=== PATIENT | female | born 1960 | race Caucasian/White ===

== ENCOUNTER 2017-11-11 15:45 | Outpatient (RCR) | payer BC, SELFPAY ==
--- NOTE | 2017-11-05 12:30 | IE_ITS ---
Date: November 05, 2017 Referring: Ari Wade MD M.D. Diagnosis: Cervical radiculopathy P.T. Diagnosis: Cervical radiculopathy SUBJECTIVE: History of Present Illness: Patient is a 57 year old female who sustained an injury in early July. She was working at a function for work at the [employer] She lifted a keg of beer and felt an immediate strain to her right sided neck and shoulder. She reports that she awoken the next morning with increased irritation however have pulled muscles before and thought it would go away therefore did not report it. Symptoms since then have continued to get worse. She reports that she has extreme pain and tingling into the side of her face especially by the end of the day. She is having trouble finding a comfortable position to sleep in at this time. She reports difficulty turning her head and notes throughout the day she finds herself holding her head up with her hands to help reduce the irritation. She is utilizing 800 mg of Ibp for pain for her sciatica. She has been utilizing [place] balm and icy hot patches along with cryotherapy with some relief. She notes of daily BILLY's. Pain Ratin/10 Pain Location: right sided scapular musculature to the base of the skull into the lateral neck Prior Level of Function: Independent Current Level of Function: Poor sleeping tolerance, lifting tolerance, difficulty with fucntional ADL's. 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 Previous Treatment: She reports that she was referred for an xray however is unable to afford at this time. She has a high deductible. Social: She lives with her . 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 Comorbidities: Hypertension, Arthritis, Occasional vertigo Falls in the last year: No Reported hospitalizations in the last year - No Medications: Ibuprofen, Hydrochlorothiazide, Atorvastatin, Potassium, Vitamin C Quality of Life: Poor Standardized Measures: NDI score: 68% perceived disability rating OBJECTIVE: Posture: Mild forward head rounded shoulder posture. Observation: Patient is very guarded with her cervical movements. Utilizing her whole body to turn verses cervical rotation. Palpation: Tenderness to palpation to the right upper trap, lev scap, cervical and thoracic paraspinals, SCM and scalenes. Positive PA mobilization C3-C5 ROM: Active cervical ROM flexion 30 degrees, extension 5 degrees with increased pain, Sidebending right 10 degrees, left 15 degrees. Demonstrates full active UE ROM bilaterally. Strength: Demonstrates grossly 5/5 UE strength throughout. Increased pain with resisted GH flexion, abduction. Neuro: Intact to light touch. Special Tests: Cervical distraction provides significant relief of symptom level. (+) Foraminal compression Treatment: IE: [id number] Patient Education: in HEP promoting posture and body mechanics. Incorporated self TPR and self massage techniques for reduced tone. Recommended continues use of cryotherapy. Issued Treat Your Own Neck by Phillip Campos for Beth principles for reduced cervical radiculopathy. Provided manual cervical distractions followed by STM throughout the entire upper back and neck in supine and prone with use of face cradle for comfort. TPR also provided to the upper trap and lev scap. Ended with use of unattended estim along with cryotherapy to the upper neck. Patient did note moderate relief post session. Direct treatment time: 60 minutes Total treatment time: 75 minutes ASSESSMENT: Patient is a 57-year-old female, referred for PT services with the diagnosis of cervical radiculopathy. Patient presents with clinical signs and symptoms consistent with diagnosis, as demonstrated by the following impairment level findings: impaired joint mobility, muscle performance, soft tissue dysfunction. Impairments are contributing to the following functional limitations:ADL's, lifting tolerance, sleeping tolerance, daily BILLY's, Neck Disability Index 68% perceived disability rating Patient is assessed as: Low 18813 complexity, based on the following: History: See comorbidities and social history. Examination: See above for functional limitations and impairments. Presentation: Stable . Decision-Making: Low complexity 68 % Disability based on NDI Patient requires skilled PT intervention to remediate the above functional limitations to return to: __X__ Premorbid level of function __X__ Return to full functional mobility __X__ Return to work demands __X__ Improve QOL Prognosis: Good STG: __4__ weeks. 1. Decreased pain by 50% or greater via VAS or greater 2. Improved sleeping tolerance with more manageable symptoms of the cervical spine 3. Improved cervical ROM to WFL's with reduced compensatory movement patterns 4. Reduced PDR by 25% or greater. LTG: __10__ weeks. 1. Return to premorbid level of function with manageable symptoms. 2. Return to full functional mobility with manageable symptoms. 3. Independent with self-maintenance program. PLAN: Patient to be seen 2 x per week, for 10 weeks, adjusting frequency of visits per patient symptoms and response to treatment. Treatment to include: Manual therapy - 75490 Cervical decompression via manual distraction, STM , cervical and thoracic mobilizations, OA release Therapeutic exercise - 69063. Cervical and scapular stabilization, postural and body mechanics Modalities such as ultrasound and estim will be utilized as needed for pain reduction. Progress to strong independent self management program once above goals have been met. If no level of improvement is seen in 4-6 weeks would recommend further intervention. Will discharge when above goals have been met. Thank you for this referral. Please do not hesitate to contact me with any questions or concerns regarding this patient's plan of care.
--- NOTE | 2017-11-11 15:45 | PTTR_ITS ---
DATE: November 11, 2017 SUBJECTIVE: Valentina notes that she obtained restrictions via her PCP for work. She reports that she was sore post her IE however did feel that it helped with her mobility for a period of time. She just got out of work prior to todays appt , this is when she feels at her worst. OBJECTIVE: Manual therapy: ([id number]).Manual cervical distractions. Followed by PA mobilization C3-T2. Side bending and rotation stretching. STM throughout the upper back and neck. OA release. CFM to the paraspinals. TPR to the upper trap, lev scap, and SCM. Reviewed HEP and continued to promote postural and body mechanics. Electrical Stim Unattended : Provided along with MHP in prone with use of face cradle for comfort. This was applied for 15 minutes post mobilization. Will continue to focus manual mobilization in promotion of centralization of symptoms with reduced numbness and tingling. Direct treatment time: 30 minutes Total treatment time: 45 minutes
== END 2017-11-12 23:59 | disposition home or self-care (01) ==
LOC: PT 15:45
PROVIDERS: PCP Nurse Practitioner Gerontology; Referring Provider Family Medicine; Visit Provider Family Medicine
DX: M54.12 Radiculopathy, cervical region (principal)
CPT/HCPCS: 97140; 97161

== ENCOUNTER 2017-11-26 01:43 | Outpatient (CLI) | payer BC, SELFPAY ==
[2017-11-26 13:24] LABS: ALT 18 U/L (12-78); AST 8 U/L (15-37); Albumin 3.8 g/dL (3.4-5.0); Alkaline Phosphatase 78 U/L (46-116); Anion Gap 7.6 mmol/L (3-11); BUN 25 mg/dL (7-18); Bilirubin, Total 0.4 mg/dL (0.2-1.0); CO2 29.4 mmol/L (21.0-32.0); CREATININE 1.14 mg/dL (0.55-1.02); Chloride 105 mmol/L (98-107); Cholesterol 200 mg/dL (50-200); Estimated GFR 49.31 (mL/min/1.73m2); Glucose 125 mg/dL (70-100); HDL Cholesterol 49 mg/dL (40-60); LDL CHOLESTEROL 131 mg/dL (<100); Potassium 4.4 mmol/L (3.5-5.1); Sodium 142 mmol/L (136-145); Triglyceride 225 mg/dL (30-150)
== END 2017-11-26 02:03 ==
PROVIDERS: PCP Family Medicine; Visit Provider Family Medicine
DX: E78.5 Hyperlipidemia, unspecified (principal)
CPT/HCPCS: 36415; 80053; 80061; 83721

== ENCOUNTER 2017-12-14 12:22 | Emergency (ER) | payer BC, SELFPAY ==
[2017-12-14 12:26] VITALS: BP 149/89; PULSE 77; RESP 16; TEMP 36.8; O2SAT 99
--- NOTE | 2017-12-14 12:43 | ED.GENADUL_ITS ---
Discharge Plan Disposition Patient Disposition: HOME Condition: Good Discharge Details Chief Complaint: RespSymp Clinical Impression: Acute bronchitis Primary Care Provider: Alexandrea Reyna ED Provider: Norman Gamboa Home Meds and New Rx's Prescriptions: New azithromycin [Zithromax Z-Jacobo] 250 mg tablet See Label Instructions .ROUTE .COMPLEX Qty: 6 RF: 0 Continue nicotine [Nicoderm CQ] 21 mg/24 hr patch 24 hour 1 patch TD DAILY RF: 0 atorvastatin [Lipitor] 20 mg tablet 20 mg PO DAILY Qty: 90 RF: 3 epinephrine 0.3 mg/0.3 mL auto-injector 0.3 mg IM ONCE Qty: 2 RF: 6 hydrochlorothiazide 50 mg tablet 50 mg PO DAILY Qty: 90 RF: 3 ibuprofen 800 mg tablet 800 mg PO TID PRN (Reason: pain) Qty: 90 RF: 3 potassium chloride 10 mEq tablet extended release 10 meq PO DAILY Qty: 90 RF: 3 meclizine 12.5 mg Tablet 1 tab PO PRN PRNRF: 0 Discharge Instructions Instructions: Acute Bronchitis (ED) Additional Instructions: Home to rest today. Small, frequent sips of fluids to maintain hydration. Continue ibuprofen as needed for discomfort. May continue ice and heat therapy as well. Follow-up with regular doctor if not improving in 5 days time Continue regular medications. Take antibiotics as prescribed. Continue your efforts to decrease tobacco use Medical Decision Making 57-year-old female smoker with days of worsening cough, congestion, production of sputum. She is of questionable exposure to streptococcal pharyngitis and the rapid strep test was obtained and negative. Nonetheless, I do feel that she is at risk for progressive acute bronchitis/sinusitis and will treat with a course of antibiotics. Discussed with her home management, the need for smoking cessation, as well as return precautions to the ER. HPI General Mode of arrival: ambulatory . Date/Time Provider Initiated Documentation: 12/14/17 12:29 . Limitations to Documentation: no limitations . Information obtained by: patient . History of Present Illness 57 year old F presents to the emergency department with the chief complaint of Cough and congestion, described as moderate, Quality is described as aching , and is localized to the chest. Patient reports no radiation. Patient started experiencing this day(s) and it has been constant. No relieving factors improve symptom(s), No exacerbating factors reported . Patient notes cough; denies chest pain and shortness of breath. HPI Narrative: 57-year-old female smoker presents with days of cough, congestion , increasing production of green sputum with associated sinus pain and pressure. She did not tolerate liquids and solids by mouth. She has ongoing right-sided neck pain for which she is seeing physical therapy. She has no new motor weakness or numbness Related Data Home Medications Medication Instructions Recorded Confirmed nicotine 21 mg/24 hr daily 1 patch TD DAILY 11/24/17 12/14/17 transdermal patch atorvastatin 20 mg tablet 20 mg PO DAILY #90 tab 11/30/17 12/14/17 epinephrine 0.3 mg/0.3 mL 0.3 mg IM ONCE #2 each 11/30/17 12/14/17 injection, auto-injector hydrochlorothiazide 50 mg tablet 50 mg PO DAILY #90 tab 11/30/17 12/14/17 ibuprofen 800 mg tablet 800 mg PO TID PRN #90 tab 11/30/17 12/14/17 potassium chloride ER 10 mEq 10 meq PO DAILY #90 tab 11/30/17 12/14/17 tablet,extended release azithromycin [Zithromax Z-Jacobo] See Label Instructions .ROUTE 12/14/17 .COMPLEX #6 tab meclizine 1 tab PO PRN PRN 12/14/17 12/14/17 Previous Rx's Medication Instructions Recorded atorvastatin 20 mg tablet 20 mg PO DAILY #90 tab 11/30/17 epinephrine 0.3 mg/0.3 mL 0.3 mg IM ONCE #2 each 11/30/17 injection, auto-injector hydrochlorothiazide 50 mg tablet 50 mg PO DAILY #90 tab 11/30/17 ibuprofen 800 mg tablet 800 mg PO TID PRN #90 tab 11/30/17 potassium chloride ER 10 mEq 10 meq PO DAILY #90 tab 11/30/17 tablet,extended release azithromycin [Zithromax Z-Jacobo] See Label Instructions .ROUTE 12/14/17 .COMPLEX #6 tab Allergies Allergy/AdvReac Type Severity Reaction Status Date / Time Penicillins Allergy Severe seizure Unverified 12/14/17 12:29 venom-honey bee Allergy Severe Anaphylaxsi Unverified 12/14/17 12:29 s General Stated Complaint: RespSymp PIPER: 4 Review of Systems Review of Systems 8 systems reviewed and otherwise - PFSH Family History Mother Essential hypertension Alzheimer disease Hyperlipidemia Father Essential hypertension Hyperlipidemia Brother No problems noted. Grandfather Heart disease Cerebrovascular accident Parkinson disease Grandmother Personal history of malignant neoplasm CD (Crohn's disease) Heart disease Hyperlipidemia Cerebrovascular accident Grandfather No problems noted. Grandmother Heart disease Son Substance abuse Depression Daughter No problems noted. Daughter No problems noted. Social History Smoking/Tobacco Use Status: Current every day Surgical History Ligation of fallopian tube Exam Narrative Exam Narrative: GEN: awake, alert, oriented 3. Pleasant, well groomed, interactive. HEAD: Normocephalic, atraumatic ENT: Mucous membranes moist, oropharynx erythematous without exudate or asymmetry. Min maxillary sinus tenderness to percussion, External ear exam unremarkable, patent membranes clear bilaterally EYES: PERRL, EOMI NECK: Full ROM, no LIZET, no menigismus CHEST/RESP: Nontender, clear to auscultation bilateral, no wheeze/rhonchi/rales CARDIOVASCULAR: RRR, no murmur, rub narayan. 2+ Rad pulse bilateral ABDOMEN: Soft, nontender, no mass. +Bowel sounds EXT: Full ROM, no edema, no rash Neuro: Grossly normal neurologic exam, conversant, interactive. Psych: Speech fluent, thoughts congruent, affect normal Course Vital Signs Temperature 36.8 C 12/14/17 12:26 Pulse 77 12/14/17 12:26 Respiratory Rate 16 12/14/17 12:26 Blood Pressure 149/89 H 12/14/17 12:26 Pulse Oximetry 99 12/14/17 12:26 Temperature 36.8 C 12/14/17 12:26 Temperature Source Temporal Artery Scan 12/14/17 12:26 Pulse 77 12/14/17 12:26 Respiratory Rate 16 12/14/17 12:26 Blood Pressure 149/89 H 12/14/17 12:26 Pulse Oximetry 99 12/14/17 12:26 Oxygen Delivery Method Room Air 12/14/17 12:26 Oxygen Flow Rate 0 12/14/17 12:26 Pain Level 8 12/14/17 12:26 Lab/Test Results Lab/Test Results: POC Strep Test-TEN(Rapid) Start: 12/14/17 12: 34 Freq: .Rapid Strep Test Status: Active Protocol: Document 12/14/17 12:40 FLORENTIN (Rec: 12/14/17 12:40 [id number]) Strep test-TEN(Rapid)-POC POC-Strep test-TEN (Rapid) Negative POC-Strep test-TEN (Rapid) Negative
[2017-12-14 12:58] VITALS: BP 149/89; PULSE 77; RESP 16; TEMP 36.8; O2SAT 99
== END 2017-12-14 13:00 | disposition home or self-care (01) ==
LOC: ER 13:09
PROVIDERS: Emergency Provider Emergency Medicine; PCP Nurse Practitioner Gerontology
DX: J20.9 Acute bronchitis, unspecified (principal); R50.9 Fever, unspecified; J02.9 Acute pharyngitis, unspecified; F17.210 Nicotine dependence, cigarettes, uncomplicated
CPT/HCPCS: 87880; 99283

== ENCOUNTER 2022-09-28 15:18 | Emergency (ER) | payer OTHER, SELFPAY ==
[2022-09-28] VITALS (41 sets, daily range): BP systolic 168–217; BP diastolic 71–98; PULSE 48–88; RESP 9–29; TEMP 37.2; O2SAT 94–100
--- NOTE | 2022-09-28 15:15 | RT.EKG_ITS ---
APPROVED REPORT Exam: Resting ECG Reason for Exam: syncopal episode Patient Location: E HR:90 bpm ECG Measurements Heart Rate 90 AXIS OR 170 P 74 QRSd 101 QRS 59 QT 391 T 42 QTc 480 Conclusion Sinus rhythm...normal P axis, V-rate 60- 99 Physician: no stemi
--- NOTE | 2022-09-28 15:30 | DI.RAD_ITS ---
Exam(s) XR CHEST 2V PA LATERAL EXAM: XR CHEST 2V PA LATERAL CLINICAL HISTORY: recent pneumonia, persistent cough and malaise TECHNIQUE: 2D digital imaging was performed of the chest. Two images were obtained. PA and lateral views were obtained. COMPARISON: CR CHEST 2 VIEWS PA,LAT from 04/19/2017 FINDINGS: MEDIASTINUM: Normal. HEART: Normal. PULMONARY VASCULATURE: Normal. LUNGS: Clear. PLEURAL SPACE: No pleural effusion or pneumothorax. BONE:Within normal limits for the patient's age. OTHER FINDINGS:Normal. IMPRESSION: No acute pulmonary findings. DATA REPOSITORY: RADIATION DOSE DELIVERED:
--- NOTE | 2022-09-28 15:30 | DI.CT_ITS ---
Exam(s) CT HEAD WO EXAM: CT HEAD WO CLINICAL HISTORY: recurrent presyncope. TECHNIQUE: Imaging Protocol: Axial computed tomography images with coronal and sagittal reformatted images were created and reviewed COMPARISON: There are no priors for comparison. FINDINGS: Ventricles and Extra axial spaces: Normal in size and morphology for the patient's age. Hemorrhage: None. Cerebral parenchyma: Normal. Midline shift: None. Brainstem/Cerebellum: Normal. Calvarium: Normal. Visualized Paranasal sinuses/Mastoids: Clear. Soft Tissues: Unremarkable. IMPRESSION: 1. No acute intracranial process. 2. Findings were discussed with the emergency department at 5:55 p.m. on 09/28/2022. RADIATION DOSE DELIVERED: 853.43mGy.cm Total DLP DATA REPOSITORY: All CT scans at this facility are submitted to the National Radiology Data Registry (NRDR) Dose Index Registry (DIR) with the [employer] ([employer]). RADIATION OPTIMIZATION: All CT scans at this facility use at least one of these dose optimization te chniques: automated exposure control; mA and/or kV adjustment per patient size (includes targeted exa ms where dose is matched to clinical indication); or iterative reconstruction.
--- NOTE | 2022-09-28 15:36 | W.ED.GENAD ---
Discharge Plan Disposition Patient Disposition: Home Condition: Good Discharge Details Clinical Impression: Hypertension, Pre-syncope Primary Care Provider: None,None ED Provider: Isis Decker Home Meds and New Rx's Prescriptions: New hydrochlorothiazide 50 mg tablet 50 mg PO DAILY Qty: 14 0RF Continued atorvastatin [Lipitor] 20 mg tablet 20 mg PO DAILY Qty: 90 3RF hydrochlorothiazide 50 mg tablet 50 mg PO DAILY Qty: 90 3RF albuterol sulfate [Proventil HFA] 90 mcg/actuation HFA aerosol inhaler 2 puff inhalation Q6H PRN (Reason: shortness of breath or wheezing) Qty: 8.5 0RF benzonatate 100 mg capsule 100 mg PO TID PRN (Reason: cough) Qty: 14 0RF ibuprofen 800 mg tablet 800 mg PO TID PRN (Reason: pain) Qty: 90 3RF Discontinued potassium chloride 10 mEq tablet extended release 10 meq PO DAILY Qty: 90 3RF cefpodoxime 200 mg tablet 200 mg PO Q12H 7 Days Qty: 14 0RF Rx Instructions: must administer with a meal/food doxycycline hyclate 100 mg tablet 100 mg PO BID Qty: 14 0RF prednisone 20 mg tablet 40 mg PO DAILY 3 Days Qty: 6 0RF fluconazole [Diflucan] 150 mg tablet 150 mg PO ONCE Qty: 1 1RF Rx Instructions: as a single dose. Repeat in one week if needed Discharge Instructions Instructions: Hypertension (ED), Near Syncope (ED) Medical Decision Making 62yo F with hx HTN, COPD, no prior cardiac hx, presenting for multiple episodes of lightheadedness and whole-body tingling over the past week; symptoms occur with activity. No chest pain or shortness of breath, no LOC. Poorly controlled HTN; previously on 50mg HCTZ but not taking for several years, recently started on 25mg HCTZ from , working to establish PCP but does not have one yet. Did not take her 25mg of HCTZ over the weekend while she was camping. Hypertensive on arrival with SBP 190-200, vital signs and physical exam otherwise reassuring, normal neurological exam. Not concerned for CVA, low suspicion for acute cardiac pathology/NC/arrhythmia. Low EKG NSR, appropriate intervals, no concerning ST segment or T wave abnormalities to suggest occlusive NC. Recent pneumonia; CXR ordered and reviewed, no focal consolidation, agree with radiology read below. Head CT independently reviewed, no acute abnormalities no sequela of hypertensive encephalopathy, agree with radiology read below. Labs ordered and reviewed, CBC & CMP with no actionable abnormalities, TSH normal, troponin negative x 2. Given 50mg of HCTZ PO in the ED, on reassessment BP with SBP in 170-180 range. Patient reports feeling improved, has paperwork to establish PCP with [facility] which she plans to do tomorrow. Prescribed 50mg of hctz to cover for two weeks while she establishes primary care. Discharged home; discharge instructions including return precautions were reviewed with patient who verbalized understanding. All questions were answered and they are in full agreement with the plan. Imaging Data Radiologic Study: Imaging: X-Ray Radiologist's impression: IMPRESSION: No acute pulmonary findings. Radiologic Study #2: Imaging: CT Scan Radiologist's impression: IMPRESSION: 1. No acute intracranial process.? 2. Findings were discussed with the emergency department at 5:55 p.m. on 09/28/2022. Lab Data Lab results reviewed: Yes I reviewed the patient's lab results. Labs: Laboratory Tests Range/Units 09/28/22 09/28/22 09/28/22 15:42 15:42 18:39 WBC (4.4-10.8) 10^3/uL 8.19 RBC (3.93-5.22) 10^6/uL 4.66 Hgb (11.2-15.7) g/dL 13.8 Hct (36.0-46.0) % 40.6 MCV (80-95) fL 87 MCH (27.0-33.0) pg 29.6 MCHC (32.0-36.0) % 34.0 RDW (11.7-14.6) % 13.8 Plt Count (130-400) 10^3/uL 304 MPV (8.0-11.0) fL 9.9 Immature Gran % 0.1 Neutrophils % 43.9 Lymphocytes % 46.8 Monocytes % 8.4 Eosinophils % 0.6 Basophils % 0.2 Nucleated RBC % (0.0-0.3) % 0.0 Absolute Neutrophils (1.2-6.7) 10^3/uL 3.59 Absolute Lymphocytes (1.2-3.4) 10^3/uL 3.83 H Absolute Monocytes (0.1-0.8) 10^3/uL 0.69 Absolute Eosinophils (0.0-0.7) 10^3/uL 0.05 Absolute Basophils (0.0-0.2) 10^3/uL 0.02 Sodium (136-145) mmol/L 141 Potassium (3.5-5.1) mmol/L 3.5 Chloride (98-107) mmol/L 107 Carbon Dioxide (21.0-32.0) mmol/L 25.3 Anion Gap (3-11) mmol/L 8.7 BUN (7-18) mg/dL 11 Creatinine (0.55-1.02) mg/dL 0.6 Est GFR (CKD-EPI 2020) (mL/min/1.73m2) 102.06 Glucose (74-106) mg/dL 99 Calcium (8.5-10.1) mg/dL 8.8 Magnesium (1.8-2.4) mg/dL 2.1 Total Bilirubin (0.2-1.0) mg/dL 0.5 AST (15-37) U/L 16 ALT (14-59) U/L 26 Alkaline Phosphatase (46-116) U/L 80 Troponin I (<or=60) ng/L < 50 < 50 Total Protein (6.4-8.2) g/dL 7.2 Albumin (3.4-5.0) g/dL 4.0 TSH (0.36-3.74) uIU/mL 1.10 HPI General Date/Time Provider Initiated Documentation: 09/28/22 15:23. Limitations to Documentation: no limitations. Information obtained by: patient. HPI Narrative: 62yo F with hx HTN, COPD, presenting for multiple episodes of lightheadedness over the past week. Has been camping over the weekend and more physically active than usual. Symptoms occur with activity; feels like she is going to pass out and whole body feels tingly. Has not lost conciousness. No chest pain or shortness of breath during these episodes. Was previously on HCTZ 50mg, has not taken in several years. No PCP currently, was seen at and started on 25mg of HCTZ about a week ago. Recent treatment for pneumonia 4-5 weeks ago, multiple rounds of antibiotics. Has persistent cough and malaise over this time period; no fevers. She is otherwise in her usual state of health with no rash, nausea, vomiting, abdominal pain, back pain, numbness, tingling, weakness, palpitations, LE edema, or other concerns. No prior cardiac hx., Related Data Home Medications Medication Instructions Recorded Confirmed ibuprofen 800 mg tablet 800 mg PO TID PRN pain #90 tabs 11/30/17 08/31/22 atorvastatin 20 mg tablet (Lipitor) 20 mg PO DAILY #90 tabs 08/03/18 08/31/22 hydrochlorothiazide 50 mg tablet 50 mg PO DAILY #90 tabs 08/03/18 08/31/22 albuterol sulfate 90 mcg/actuation 2 puff inhalation Q6H PRN 11/26/21 08/31/22 aerosol inhaler (Proventil HFA) shortness of breath or wheezing #8.5 grams benzonatate 100 mg capsule 100 mg PO TID PRN cough #14 caps 08/31/22 08/31/22 hydrochlorothiazide 50 mg tablet 50 mg PO DAILY #14 tabs 09/28/22 Previous Rx's Medication Instructions Recorded ibuprofen 800 mg tablet 800 mg PO TID PRN pain #90 tabs 11/30/17 atorvastatin 20 mg tablet (Lipitor) 20 mg PO DAILY #90 tabs 08/03/18 hydrochlorothiazide 50 mg tablet 50 mg PO DAILY #90 tabs 08/03/18 albuterol sulfate 90 mcg/actuation 2 puff inhalation Q6H PRN 11/26/21 aerosol inhaler (Proventil HFA) shortness of breath or wheezing #8.5 grams benzonatate 100 mg capsule 100 mg PO TID PRN cough #14 caps 08/31/22 hydrochlorothiazide 50 mg tablet 50 mg PO DAILY #14 tabs 09/28/22 Allergies Allergy/AdvReac Type Severity Reaction Status Date / Time Penicillins Allergy Severe seizure Unverified 08/31/22 15:38 venom-honey bee Allergy Severe Anaphylaxsi Unverified 08/31/22 15:38 s General Stated Complaint: AMS/LOC PIPER: 3 Review of Systems Narrative: see HPI PFSH All Active Problems (Updated 09/28/22 @ 19:16 by Isis Decker MD) Hypertension (Chronic) Pre-syncope (Acute) Acute cystitis (Acute 10/31/08) Basal cell carcinoma of nose (Acute) Cardiac murmur, unspecified (Acute) Cervical radiculopathy (Acute 10/15/17) Depressive disorder (Acute) Essential hypertension (Acute 01/08/15) Urinary, incontinence, stress female (Acute) History of bilateral ligation of fallopian tubes (Acute) Hyperlipidemia (Acute 07/17/15) Low back pain (Acute) Tobacco use disorder (Acute) Uterine leiomyoma (Acute) Cervical radiculopathy (Chronic) Surgical History Ligation of fallopian tube 1993 Family History Mother Essential hypertension Alzheimer disease Hyperlipidemia Father Essential hypertension Hyperlipidemia Brother No problems noted. Grandfather Heart disease Stroke Parkinson disease Grandmother Personal history of malignant neoplasm Stomach CD (Crohn's disease) Heart disease Hyperlipidemia Stroke Grandfather No problems noted. Grandmother Heart disease Son Substance abuse Depression Daughter No problems noted. Daughter No problems noted. 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 Head: Normocephalic, atraumatic Neck: Trachea midline, Neck supple. ENT: MMM. No oropharygeal lesions or exudate. Cardiac: RRR, no murmurs appreciated Resp: No respiratory distress. CTAB. Abd: Soft, non-distended, nontender : No suprapubic tenderness. Extremities: No deformities. No peripheral edema. Neuro: GCS 15. PERRL. EOMI. Fluent speech, no dysarthria. Motor- 5/5 strength symmetric bilateral upper and lower extrmeties including shoulder abductors/adductors, elbow flexors/extensors, wrist flexors/extensors, finger abductors/adductors, hipflexors/extensors, knee flexors/extensors, ankle dorsiflexors and planter flexors. Sensation- Intact to light touch and symmetric multiple dermatomes including upper and lower extrmeities Coordination- No dysmetria on finger to nose Reflexes- 2/4 achilles & patellar, no clonus Gait/station: Normal stance. No truncal ataxia. Steady gait with equal normal steps CRANIAL NERVES: II: Pupils equal and reactive, III, IV, : EOM intact, no gaze preference or deviation, no nystagmus. V: normal sensation in V1, V2, and V3 segments bilaterally VII: no asymmetry, no nasolabial fold flattening VIII: normal hearing to speech IX, X: normal palatal elevation, no uvular deviation XI: 5/5 head turn and 5/5 shoulder shrug bilaterally XII: midline tongue protrusion Course Vital Signs Vital signs: Vital Signs Temperature 37.2 C 09/28/22 15:20 Pulse 80 09/28/22 15:20 Respiratory Rate 20 09/28/22 15:20 Blood Pressure 197/83 H 09/28/22 15:20 Pulse Oximetry 96 09/28/22 15:20 Temperature 37.2 C 09/28/22 15:20 Temperature Source Oral 09/28/22 15:20 Pulse 80 09/28/22 15:20 Respiratory Rate 15 09/28/22 15:29 Respiratory Effort Normal 09/28/22 15:29 Respiratory Depth Normal 09/28/22 15:29 Respiratory Pattern Normal 09/28/22 15:29 Blood Pressure 197/83 H 09/28/22 15:20 Blood Pressure Position Supine 09/28/22 15:20 Pulse Oximetry 96 09/28/22 15:20 Oxygen Delivery Method Room Air 09/28/22 15:20 Oxygen Flow Rate 0 09/28/22 15:20 Pain Level 0 09/28/22 15:20
[2022-09-28 15:48] LABS: Abs Immature Grans 0.01 10^3/uL (0.0-0.06); Absolute Basophil Count 0.02 10^3/uL (0.0-0.2); Absolute Eosinophil Count 0.05 10^3/uL (0.0-0.7); Absolute Lymphocyte Count 3.83 10^3/uL (1.2-3.4); Absolute Monocyte Count 0.69 10^3/uL (0.1-0.8); Absolute Neutrophil Count 3.59 10^3/uL (1.2-6.7); Basophils % 0.2; Eosinophils % 0.6; HCT 40.6 % (36.0-46.0); HGB 13.8 g/dL (11.2-15.7); Immature Grans % 0.1; Lymphocytes % 46.8; MCH 29.6 pg (27.0-33.0); MCV 87 fL (80-95); MPV 9.9 fL (8.0-11.0); Monocytes % 8.4; Neutrophils % 43.9; Platelet Count 304 10^3/uL (130-400); RBC 4.66 10^6/uL (3.93-5.22); RDW 13.8 % (11.7-14.6); RDW-SD 43.9 fL; WBC 8.19 10^3/uL (4.4-10.8)
[2022-09-28] MEDS: hydroCHLOROthiazide 25 MG TAB PO ×2 (15:48→19:12)
[2022-09-28 16:19] LABS: ALT 26 U/L (14-59); AST 16 U/L (15-37); Alkaline Phosphatase 80 U/L (46-116); Anion Gap 8.7 mmol/L (3-11); BUN 11 mg/dL (7-18); Bilirubin, Total 0.5 mg/dL (0.2-1.0); CO2 25.3 mmol/L (21.0-32.0); CREATININE 0.6 mg/dL (0.55-1.02); Calcium 8.8 mg/dL (8.5-10.1); Chloride 107 mmol/L (98-107); Estimated GFR 102.06 (mL/min/1.73m2); Glucose 99 mg/dL (74-106); Magnesium 2.1 mg/dL (1.8-2.4); Potassium 3.5 mmol/L (3.5-5.1); Sodium 141 mmol/L (136-145); Total Protein 7.2 g/dL (6.4-8.2); Troponin I < 50 ng/L (<or=60)
[2022-09-28 19:03] LABS: Troponin I < 50 ng/L (<or=60)
== END 2022-09-28 19:48 | disposition home or self-care (01) ==
PROVIDERS: Emergency Provider Student in an Organized Health Care Education/Training Program
DX: R55 Syncope and collapse (principal); I10 Essential (primary) hypertension; T50.2X6A Underdosing of carbonic-anhydrase inhibitors, benzothiadiazides and other diuretics, initial encounter; J44.9 Chronic obstructive pulmonary disease, unspecified; F17.210 Nicotine dependence, cigarettes, uncomplicated; Z91.148 Patient's other noncompliance with medication regimen for other reason
CPT/HCPCS: 36415; 80053; 93005; 99284; 70450; 71046; 83735; 84443; 84484; 85025; 93010; 99283

== ENCOUNTER 2022-12-11 03:28 | Outpatient (CLI) | payer OTHER, SELFPAY ==
[2022-12-11 07:34] LABS: HCT 44.8 % (36.0-46.0); HGB 14.7 g/dL (11.2-15.7); MCH 29.4 pg (27.0-33.0); MCHC 32.8 % (32.0-36.0); MCV 90 fL (80-95); MPV 9.4 fL (8.0-11.0); Platelet Count 315 10^3/uL (130-400); RDW 14.2 % (11.7-14.6); RDW-SD 46.9 fL; WBC 8.22 10^3/uL (4.4-10.8)
[2022-12-11 08:02] LABS: Hemoglobin A1C 6.7 % (<5.7)
[2022-12-11 08:29] LABS: Anion Gap 10.4 mmol/L (3-11); BUN 15 mg/dL (7-18); CO2 26.6 mmol/L (21.0-32.0); CREATININE 0.7 mg/dL (0.55-1.02); Calcium 9.5 mg/dL (8.5-10.1); Calculated LDL 168 mg/dL (<100); Chloride 103 mmol/L (98-107); Cholesterol 247 mg/dL (<200); Estimated GFR 98.34 (mL/min/1.73m2); Glucose 117 mg/dL (74-106); HDL Cholesterol 61 mg/dL (40-60); Potassium 3.9 mmol/L (3.5-5.1); Sodium 140 mmol/L (136-145); TSH (W/Ref FT4) 1.08 uIU/mL (0.36-3.74); Triglyceride 93 mg/dL (<150)
== END 2022-12-11 03:29 | disposition home or self-care (01) ==
LOC: LBO 03:28
PROVIDERS: PCP Nurse Practitioner Family; Visit Provider Nurse Practitioner Family
DX: I10 Essential (primary) hypertension (principal); E78.5 Hyperlipidemia, unspecified; R73.03 Prediabetes; F32.89 Other specified depressive episodes
CPT/HCPCS: 36415; 80048; 80061; 85027; 83036; 84443

== ENCOUNTER 2022-12-31 10:14 | Outpatient (CLI) | payer OTHER, SELFPAY ==
--- NOTE | 2022-12-31 09:45 | DI.RAD_ITS ---
Exam(s) XR CHEST 2V PA LATERAL EXAM: XR CHEST 2V PA LATERAL CLINICAL HISTORY: UPPER RESPIRATORY INFECTION-J06.9 TECHNIQUE: 2D digital imaging was performed of the chest. Two images were obtained. PA and lateral views were obtained. COMPARISON: CR XR CHEST 2V PA LATERAL from 09/28/2022 FINDINGS: MEDIASTINUM: Normal. HEART: Normal. PULMONARY VASCULATURE: Normal. LUNGS: Clear. PLEURAL SPACE: No pleural effusion or pneumothorax. BONE:Within normal limits for the patient's age. OTHER FINDINGS:Normal. IMPRESSION: No acute pulmonary findings. DATA REPOSITORY: RADIATION DOSE DELIVERED:
== END 2022-12-31 10:34 ==
LOC: DI 10:18
PROVIDERS: PCP Nurse Practitioner Family; Visit Provider Nurse Practitioner Family
DX: J06.9 Acute upper respiratory infection, unspecified (principal)
CPT/HCPCS: 71046

== ENCOUNTER → 2023-06-30 01:02 | Outpatient (CLI) | payer OTHER, SELFPAY ==
--- NOTE | 2023-06-30 14:47 | DI.US_ITS ---
APPROVED REPORT EXAM: Comprehensive 2D, Doppler, and color-flow Echocardiogram Patient Location: Out-Patient Medical Records Specialist: Mady Lane RDCS (AE) Indications: Cardiac murmur Other Information Study Quality: Good Conclusion Normal left ventricular wall thickness and chamber size. EF is 60%. Wall motion is normal Normal right ventricular size and function Both atria are normal in size. There is no structural or hemodynamically significant valvular disease Wall motion Left Ventricle The left ventricle is normal size. The left ventricular systolic function is normal. The left ventric ular ejection fraction is within the normal range. There is normal left ventricular wall thickness. T here is normal LV segmental wall motion. There is no ventricular septal defect visualized. LVEF is 60 %. Right Ventricle The right ventricle is normal size. The right ventricular systolic function is normal. Atria The left atrium size is normal. The right atrium size is normal. The interatrial septum is intact wit h no evidence for an atrial septal defect. Aortic Valve The aortic valve is normal in structure. Aortic valve is trileaflet. There is no aortic valvular sten osis. No aortic regurgitation is present. Mitral Valve The mitral valve is normal in structure. No evidence of mitral valve stenosis. Trace mitral regurgita tion. Tricuspid Valve The tricuspid valve is normal in structure. There is no tricuspid valve stenosis. Trace tricuspid reg urgitation. Unable to assess PA pressure. Pulmonic Valve The pulmonary valve is normal in structure. There is no pulmonic valvular stenosis. Trace pulmonic re gurgitation. Great Vessels The aortic root is normal in size. The ascending aorta is mildly dilated. Aortic arch is not well vis ualized. IVC is normal in size and collapses >50% with inspiration. Pericardium There is no pericardial effusion. 2D Dimensions IVSD d PLAX 0.80 cm F: 0.6-1.0 Ao Root d 2.51 cm F: 2.7 - 3.3 LVPW d PLAX 0.85 cm F: 0.6 - 1.0 Ao Asc Diam d 3.34 cm F: 2.3 - 3.1 LVID d PLAX 4.84 cm F: 3.8 - 5.2 LVDs 3.19 cm F: 2.2 - 3.5 LV EF Teichholz 62.9 % FS 34.05 % LV EDV (Teich) 109.5 mL LV ESV (Teich) 40.7 mL M-Mode TAPSE 1.86 cm (M/F) >1.7 Auto EF LV EDV A4C 71.1 mL LV EDV A2C 78.0 mL LV EDV BP 74.2 mL LV ESV A4C 30.4 mL LV ESV A2C 30.2 mL LV ESV BP 30.3 mL LVEF(%) A4C 57.2 % LVEF(%) A2C 61.2 % LVEF(%) BP 59.2 % LV SV A4C 40.7 ml LV SV A2C 47.8 ml LV SV BP 43.9 ml LV CO A4C 3.4 L/min LV CO A2C 3.7 L/min LV CO BP 3.5 L/min HR A4C 82.57 BPM HR A2C 77.42 BPM LV EDV Index (BP) LV Strain Long Pk Overal Avg (s) 17.03 LA Volume LA Length A4C 5.0 cm LA Length A2C 4.9 cm LA Area A4C s 13.89 cm2 LA Area A2C s 13.37 cm2 LA Vol A4C A-L 32.96 mL LA Vol A2C A-L 31.05 mL LA Vol Biplane A-L 32.3 mL LA Vol/BSA A4C A-L LA Vol/BSA A2C A-L LA Vol/BSA BP A-L 19.1 mL/m2 LA Vol A4C MOD 30.2 mL LA Vol A2C MOD 29.5 mL LA Vol BP MOD 30.1 mL RA Volume RA Area A4C 8.2 cm2 RA ESV A4C (A-L) 14.2mL RA Vol/BSA A4C A-L RA Length A4C 4.1 cm RA ESV A4C (MOD) 13.8mL LV Diastology MV E' medial 0.098 (>0.07 m/s) MV E Vmax 0.91 (0.4-1.3 m/s) MV E/E' MED 9.37 (<14) MV A Vmax 0.95 (0.4-1.3 m/s) MV E' lateral 0.113 (>0.1 m/s) E/A Ratio 1.0 MV E/E' LAT 8.11 (<14) MV E' Average 0.105 m/s MV E/E'(average) 8.69 Aortic Valve AoV Vmax 1.72 m/s LVOT Vmax 1.29 m/s AoV Peak Grad 11.8 mmHg LVOT Peak Grad 6.7 mmHg AoV Area (Vmax) 2.15 cm2 LVOT VTI 0.252 m AoV VTI 0.358 m LVOT Mean Grad 3.7 mmHg AoV Mean Del. 1.15 m/s LVOT SV 71.99 mL AoV Mean Grad 6.1 mmHg LVOT Diam s 1.90 cm AoV Area (VTI) 2.01 cm2 Velocity Ratio 0.75 Mitral Valve MV DT 267 (160-240 msec) MV Vmax TIPS 0.88 m/s MV Mean Grad 1.6 (<2mmHg) MV VTI 0.300 m Pulmonary Valve PV Vmax 1.43 (0.5-1.5 m/s) RVOT Vmax 1.08 m/s PV Peak Grad 8.2 mmHg RVOT Peak Gr. 4.7 mmHg PV Mean Del 1.05 m/s RVOT VTI 0.215 m PV Mean Grad 4.8 mmHg RVOT Mean Gr. 2.6 mmHg Tricuspid Valve RA Pressure 3.00 mmHg TV S' 0.14 m/s
== END ==
PROVIDERS: PCP Nurse Practitioner Family; Visit Provider Nurse Practitioner Family
DX: R01.1 Cardiac murmur, unspecified (principal)
CPT/HCPCS: 93306

== ENCOUNTER 2024-10-19 11:30 | Emergency (ER) | payer OTHER, SELFPAY ==
[2024-10-19 11:47] VITALS: BP 155/92; PULSE 96; RESP 16; TEMP 36.2; O2SAT 97
--- NOTE | 2024-10-19 12:03 | W.ED.GENAD ---
Discharge Plan Disposition Patient Disposition: Home Condition: Stable Discharge Details Clinical Impression: Spasm of thoracic back muscle Primary Care Provider: Khalida Huffman ED Provider: Irwin Gomez Home Meds and New Rx's Prescriptions: Continued nicotine 21 mg/24 hr patch 24 hour 1 patch transdermal DAILY Qty: 14 2RF prednisone 5 mg tablet 5 mg PO DIRECTED Qty: 49 0RF Rx Instructions: 40 mg x 2 days, 30 mg x 2 days, 20 mg x 2 days, 15 mg x 2 days, 10 mg x 2 days, 5 mg x 2 days, 2.5 mg x 2 days, then stop. hydrochlorothiazide 25 mg tablet 25 mg PO DAILY Qty: 90 3RF epinephrine 0.3 mg/0.3 mL auto-injector 0.3 mg IM ONCE Qty: 2 1RF Rx Instructions: as a single dose; may repeat once albuterol sulfate 90 mcg/actuation HFA aerosol inhaler 2 puff inhalation Q6H PRN (Reason: shortness of breath or wheezing) Qty: 8.5 3RF prednisone 20 mg tablet See Rx Instructions PO DAILY Qty: 11 0RF Rx Instructions: 2 tabs 3 days; 1 tab 3 days; 0.5 tabs 4 days PO daily; ibuprofen 800 mg tablet 800 mg PO Q8H PRN (Reason: pain) Qty: 90 0RF cyclobenzaprine 5 mg tablet 5 mg PO TID PRN (Reason: muscle spasm) Qty: 60 0RF Rx Instructions: Take 1 tablet by mouth three times a day as needed for back pain Discharge Instructions Instructions: Muscle Spasm ED Additional Instructions: You were seen in the emergency department for your thoracic back spasm, you are neurovascularly intact in bilateral upper extremities, you have no vertebral tenderness. We discussed this as a likely back spasm causing pinched nerve with your tingling down the right arm. Please keep taking 1000 mg of Tylenol every 6 hours, you may take 400 mg of ibuprofen every 6 hours, take the cyclobenzaprine, resume that tonight after the Valium wears off. Use a lidocaine patch to the area of pain for 12 hours each day. Alternate heat and ice to the area, to attempt to perform gentle stretching and gentle massage exercises to the area as we discussed. Please return for any signs of neurovascular compromise to the upper extremities. Stand Alone Forms: Work Release Referrals: Khalida Huffman NP [Primary Care Provider, Medicine] Discharge Data Discharge Date/Time-TO BE ENTERED AT DEPARTURE: 10/19/24 12:52 HPI General Date/Time Provider Initiated Documentation: 10/19/24 11:55. HPI Narrative: 64 year-old female presents to ED today by POV/ambulating with a chief complaint of back pain, seen at [facility] yesterday- with her chronic lumbar back pain spreading to her thoracic back with numbness in R arm with onset of that syndrome on Wednesday morning. Quality described as shooting pains, no radiation to nausea/vomiting, inability to move any extremity, numbness to genitals, urinary retention, bowel incontinence, fever. Severity is described as severe. Palliating factors include cyclobenzaprine not helping. Provoking factors include nothing specific. Patient not anticoagulated. Related Data Home Medications ?Medication ?Instructions ?Recorded ?Confirmed nicotine 21 mg/24 hr daily 1 patch transdermal DAILY #14 ea 06/07/23 10/20/24 transdermal patch albuterol sulfate 90 mcg/actuation 2 puff inhalation Q6H PRN 03/27/24 10/20/24 aerosol inhaler shortness of breath or wheezing #8.5 grams epinephrine 0.3 mg/0.3 mL 0.3 mg (0.3 mL) IM ONCE #2 ea 03/27/24 10/20/24 injection, auto-injector hydrochlorothiazide 25 mg tablet 25 mg PO DAILY #90 tabs 03/27/24 10/20/24 prednisone 5 mg tablet 5 mg PO DIRECTED #49 tabs 03/27/24 10/20/24 cyclobenzaprine 5 mg tablet 5 mg PO TID PRN muscle spasm #60 10/16/24 10/20/24 tabs ibuprofen 800 mg tablet 800 mg PO Q8H PRN pain #90 tabs 10/16/24 10/20/24 prednisone 20 mg tablet See Rx Instructions PO DAILY #11 10/16/24 10/20/24 tabs Previous Rx's ?Medication ?Instructions ?Recorded nicotine 21 mg/24 hr daily 1 patch transdermal DAILY #14 ea 06/07/23 transdermal patch albuterol sulfate 90 mcg/actuation 2 puff inhalation Q6H PRN 03/27/24 aerosol inhaler shortness of breath or wheezing #8.5 grams epinephrine 0.3 mg/0.3 mL 0.3 mg (0.3 mL) IM ONCE #2 ea 03/27/24 injection, auto-injector hydrochlorothiazide 25 mg tablet 25 mg PO DAILY #90 tabs 03/27/24 prednisone 5 mg tablet 5 mg PO DIRECTED #49 tabs 03/27/24 cyclobenzaprine 5 mg tablet 5 mg PO TID PRN muscle spasm #60 10/16/24 tabs ibuprofen 800 mg tablet 800 mg PO Q8H PRN pain #90 tabs 10/16/24 prednisone 20 mg tablet See Rx Instructions PO DAILY #11 10/16/24 tabs Allergies Allergy/AdvReac Type Severity Reaction Status Date / Time Penicillins Allergy Severe seizure Verified 10/20/24 13:16 venom-honey bee Allergy Severe Anaphylaxsi Verified 10/20/24 13:16 s General Stated Complaint: Nk/Back Pain PIPER: 3 Review of Systems All systems reviewed & are unremarkable except as noted in HPI and below Exam Narrative Exam Narrative: GENERAL APPEARANCE: Well-nourished, non-toxic, awake and alert, atraumatic, no acute distress. SKIN: Warm, pink, dry, intact, without rashes/lesions/ulcerations. HEAD: Normocephalic, atraumatic, normal hair distribution for gender/age. EYES: Normal conjunctiva, no exudates on lids/lashes. ENT: Nares patent, no circumoral cyanosis, no facial swelling NECK: Supple, trachea midline, painless cervical ROM. LUNGS/CHEST: Non-labored respirations, normal A/P diameter, symmetrical expansion, no chest wall deformity HEART (CV/PV): No peripheral edema, no JVD. ABDOMEN: Soft, non-distended, no guarding. MSK: Normal ROM, no swelling/deformity to bilateral UEs or LEs, moving all extremities without weakness, no cyanosis, spine midline without tenderness- palpable tension over R scapula, normal curvature. NEURO: Mental Status AAOx4 - alert to person, place, time, events No facial droop, no forehead involvement. Motor: No focal weakness - strength 5/5 in bilateral UEs and LEs, proximal and distal, symmetric. Sensory: sensation intact to light touch globally. Gait normal: patient ambulated without ataxia into ED room. PSYCH: euthymic, cooperative, pleasant, appropriate speech Course Vital Signs Vital signs: Vital Signs Temperature 36.2 C L 10/19/24 11:47 Pulse 96 H 10/19/24 11:47 Respiratory Rate 16 10/19/24 11:47 Blood Pressure 155/92 H 10/19/24 11:47 Pulse Oximetry 97 10/19/24 11:47 Temperature 36.2 C L 10/19/24 11:47 Temperature Source Oral 10/19/24 11:47 Pulse 96 H 10/19/24 11:47 Respiratory Rate 16 10/19/24 11:47 Blood Pressure 155/92 H 10/19/24 11:47 Blood Pressure Position Sitting 10/19/24 11:47 Pulse Oximetry 97 10/19/24 11:47 Oxygen Delivery Method Room Air 10/19/24 11:47 Oxygen Flow Rate 0 10/19/24 11:47 Pain Level 10 10/19/24 11:47 Medical Decision Making This dictation utilizes [id number] dictation software and may contain unedited grammatical errors. 64 year-old female presents to ED today by POV/ambulating with a chief complaint of back pain, seen at [facility] yesterday- with her chronic lumbar back pain spreading to her thoracic back with numbness in R arm with onset of that syndrome on Wednesday morning. Quality described as shooting pains, no radiation to nausea/vomiting, inability to move any extremity, numbness to genitals, urinary retention, bowel incontinence, fever. Severity is described as severe. Palliating factors include cyclobenzaprine not helping. Provoking factors include nothing specific. Patients' medical history: Sciatica, cervical radiculopathy, hypertension. Family and social history: Noncontributory. Pertinent exam findings / vital signs include right thoracic paraspinal tenderness over the scapula, palpable muscle tension, neurovascularly intact in all 4 extremities with normal strength, no saddle anesthesia, no nuchal rigidity. Differential / pathologies of concern include thoracic spasm, sciatica, chronic radicular pain.. Diagnostic studies of: - None. Interventions of: - 1 g p.o. Tylenol, 30 mg IM Toradol, 5 mg p.o. Valium, Lidoderm patch, patient is satisfied with this intervention plan to upgrade her cyclobenzaprine today with a dose of Valium in hopes that her pain calms down. ED Course/Assessment/Plan: 64-year-old female presents with acute on chronic back pain and radicular pain, she has a clear muscle spasm in her right thoracic back, her cyclobenzaprine has not been helping but she has not taken anything today, she did agree to plan to trial Valium for the rest of the day, aggressive treatment Tylenol and Toradol today, continuation of heat and ice at home, Lidoderm patch was applied, he has adequate follow-up and will return for any signs of cauda equina but has none at this time. Findings not consistent with neurovascular compromise, trauma, dizziness, spinal epidural abscess or cauda equina syndrome. Disposition of Spasm of Thoracic Back Muscle. Patient verbalized understanding of the plan and return to ED criteria and engaged in shared decision making. Medical Records Medical records reviewed: Yes I reviewed the patient's medical records. PFSH All Active Problems (Updated 10/19/24 @ 12:19 by GABBIE Hardwick) Spasm of thoracic back muscle (Acute) Pre-diabetes (Acute) Sciatica associated with disorder of lumbar spine (Acute) Basal cell carcinoma of nose (Acute) Cardiac murmur, unspecified (Acute) Cervical radiculopathy (Acute 10/15/17) Depressive disorder (Acute) Essential hypertension (Acute 01/08/15) Urinary, incontinence, stress female (Acute) Hyperlipidemia (Acute 07/17/15) Tobacco use disorder (Acute) Uterine leiomyoma (Acute) Medical History Acute cystitis (10/31/08) Surgical History History of bilateral ligation of fallopian tubes Ligation of fallopian tube 1993 Family History Mother Essential hypertension Alzheimer disease Hyperlipidemia Father Essential hypertension Hyperlipidemia Brother No problems noted. Grandfather Heart disease Stroke Parkinson disease Grandmother Personal history of malignant neoplasm Stomach CD (Crohn's disease) Heart disease Hyperlipidemia Stroke Grandfather No problems noted. Grandmother Heart disease Son Substance abuse Depression Daughter No problems noted. Daughter No problems noted. 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 Pets and animals: Yes Pets and animals: cat(s), dog(s) and bird(s) Sexually active: No Do you think of yourself as: straight/heterosexual Current gender identity: female What is your relationship status?: How often do you talk on the phone with friends or family?: decline to answer How often do you get together with friends or relatives?: three or more times per week How often do you attend orthodoxy or advent services?: decline to answer Do you belong to any clubs or organized social groups?: no Panel score (0-1 are the most socially isolated patients): 1 What type of physical activity do you participate in: independent ambulation Duration: 15-30 minutes/day Frequency: 3-4 times per week Barbara/Mu-Ism: Scientologist Special barbara needs: No Seatbelt use: always Drive intox or ride w/intox 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
[2024-10-19] MEDS: diazePAM 5 MG TAB PO (12:29)
[2024-10-19] MEDS: Acetaminophen 500 MG TAB 1000 MG PO (12:29)
[2024-10-19] MEDS: Lidocaine 5% Patch 1 PATCH TP (12:30)
[2024-10-19] MEDS: Ketorolac 30 MG/ML VIAL IM (12:30)
== END 2024-10-19 12:52 | disposition home or self-care (01) ==
PROVIDERS: Emergency Provider Physician Assistant; PCP Nurse Practitioner Family
DX: M62.830 Muscle spasm of back (principal); I10 Essential (primary) hypertension; E78.5 Hyperlipidemia, unspecified
CPT/HCPCS: 96372; 99283; J1885